=== PATIENT | female | born 1955 | race Caucasian/White ===

== ENCOUNTER 2019-04-13 04:52 | Inpatient (IN) ==
[2019-04-13] MEDS ORDERED: Ipratropium/Albuterol Neb 3 ML IH PRN (07:55)
--- NOTE | 2019-04-13 07:55 | Internal Med History&Physical ---
Date of Encounter: 04/13/19 Time of Encounter: 07:53 Internal Medicine - H&P: HPI Chief complaint: shortness of breath Admitted From: Home Plans for Post Hospital Care: Home History of present illness: Ms. Andrade is a 63 year old female with past medical history of COPD on 2 L of oxygen at home was transferred from [facility] due to recurrent COPD exacerbation for pulmonary evaluation. Did not report any fever. Her symptoms started yesterday morning after exertion. She denies any chest pain. Has increased cough. Denied increased expectoration. Denies any other complaints. She was recently treated with prednisone. Had about 4-5 admissions since last May. Patient had workup over there which was mostly unremarkable sinus tachycardia. Patient denies any cardiac history. She received Solu-Medrol, Levaquin and breathing treatments. She had to be put on BiPAP initially and transferred here later for pulmonary consult. Patient reports being using albuterol and Symbicort for her COPD. Says he is compliant with her medication. Denies any abdominal pain nausea vomiting diarrhea or urinary complaints. Reports some allergy to azithromycin with burning at the injection site. Says she is only on albuterol oxygen and Symbicort at home. Past Med Surg Social Fam HX - Past Medical History Medical history: COPD, thyroid disease Psychiatric history: no psych history - Past Surgical History Additional surgical history: tubal ligation - Social History Smoking Status: Former smoker Smokeless Tobacco Status: No Alcohol use: rarely Drug use: none - Additional Family History Additional family history: lung disease in father Internal Medicine - H&P: Meds Clindamycin HCl [Cleocin HCl] 300 mg PO QID #40 cap 03/19/16 [Rx] DiphenhydraMINE [Benadryl] 25 mg PO Q6HR #30 capsule 03/19/16 [Rx] PredniSONE [Deltasone] 20 mg PO DAILY #20 tablet 03/19/16 [Rx] Allergy/AdvReac Type Severity Reaction Status Date / Time No Known Allergies Allergy Verified 03/19/16 23:24 All Systems PM: A 10-system review of systems was performed and is negative for pertinent findings except as documented above in the HPI. - Constitutional Vitals: Temp Pulse Resp BP Pulse Ox 98.4 F 93 16 121/65 95 04/13/19 07:05 04/13/19 07:05 04/13/19 07:05 04/13/19 07:05 04/13/19 07:05 Exam: Constitutional: Vitals as noted. Conversant. No Apparent Distress. Eyes : Sclera white, conjunctiva clear, no lid lag, PEARLA. ENT : Grossly normal hearing. Respiratory : No accessory muscle use. on nasal cannula, Rhonchi and wheeze more on Rt lung field Cardiovascular : RRR, +S1, +S2. no murmur, gallop, rubs. No chest wall tenderness GI/Abdominal : Soft, Non-tender, Non-distended, normal bowel sounds, no peritoneal signs. no orgenomegaly or mass appreciated. no hernia. Musculoskeletal: no deformity noted. no edema, warm extremities, pulses palpable and symmetrical in UE/LE. no calf tenderness. Neurological: AO X3, CN II-XII grossly intact, grossly normal motor and sensory exam. Skin: No skin rash, lesions or ulcers noted. Internal Med - H&P Results - EKG Data -: EKG Interpreted by Myself EKG shows normal: sinus rhythm Rate: tachycardia - Assessment and Plan (1) Acute respiratory failure with hypoxia Current Visit: Yes Status: Acute Assessment and plan: Likely secondary to COPD exacerbation. Treatment as below. (2) COPD exacerbation Current Visit: Yes Status: Acute Assessment and plan: We will keep patient on bronchodilators, home Symbicort and steroid IV. Given recurrent COPD exacerbation we will get pulmonary consult. Obtain repeat labs and 2 view chest x-ray and pro calcitonin. Keep patient on Levaquin for now. (3) DVT prophylaxis Current Visit: Yes Status: Acute Assessment and plan: Heparin subcutaneous - Time Spent With Patient Total time spent is greater than 50% in coordination of care (as documented) at patient's floor/unit and/or counseling patient:
--- NOTE | 2019-04-13 08:18 | Pulmonology Consult Note ---
Date of Encounter: 04/13/19 Time of Encounter: 07:47 Assessment and Plan (1) COPD exacerbation Current Visit: Yes Status: Acute Megan presents with a COPD exacerbation and I suspect in large part this is secondary to a either ineffectual medication regimen or medical noncompliance in part driven by property. She is Symbicort at home but can generally not afford to take it. Recommended the patient be placed on a prolonged prednisone taper 40 mg of prednisone which can be decreased over the next 3 [address] and [facility] this weekend for pulmonary clinic and she can follow-up with me and there. She should have a home nebulizer and continue duo nebs every 4-6 hours throughout the day and that should be scheduled to so that she gets at least 3 and ideally for breathing treatments per day that may be the most cost effective strategy for her. Otherwise I have asked that her chest x-ray be uploaded into our system I will review it and make any addendum to this note based upon personal interpretation of the image. Is absolutely crucial that Megan avoid all forms of tobacco smoke and including those living in her house and I reiterated this to her. She will benefit from off 5 days total of a macrolide antibiotic for COPD exacerbation such as azithromycin. Otherwise she is quite stable and back to home oxygen support she should not have oxygen supplementation to keep saturation around 89-92%. Please discharge the patient with Symbicort 160/4.52 puffs twice a day hopefully she can leave the hospital with the inhaler from her admission which can give her some consistent therapy while we work on finding definitive treatment that she can afford in the outpatient setting Thank you very much for this consultation and I will sign off now please call with any questions (2) Acute respiratory failure with hypoxia Current Visit: Yes Status: Acute (3) Tobacco abuse Current Visit: Yes Status: Acute History of Present Illness Consult date: 04/13/19 Requesting physician: Chrissy Weinberg Reason for consult: COPD Chief complaint: Difficulty in Breathing History of present illness: Megan is a 63-year-old woman with COPD and chronic respiratory failure 2 L of oxygen all times. She is well-known to me from pulmonary clinic where I had evaluated her in September in [place] she establish care in pulmonary clinic. Unfortunately that she has had at least 3 emergency room visits/hospitalizations for COPD exacerbation in fact presented to [facility] [address] [place] overnight when she woke up in the night feeling dyspneic apparently per medical record which I reviewed she was presented was in respiratory extremis placed on BiPAP with some improvement she has been given bronchodilator steroids and antibiotics and she says she is getting back to baseline now. Chest x-ray was reviewed from the outside hospital which was without acute process. Troponin was consulted for recurrent admissions to hospitals for COPD. Patient assures me that over the last 3 months she has not smoked at all. I applauded her for her efforts to quit smoking entirely. She been feeling at her baseline yesterday and it been out shopping here in [place] and then in the evening things began to get worse. She does not know with the antecedent trigger was. She denies any cough or sputum production denies any fevers chills night sweats or hemoptysis denies any chest pain today denies any loose stools and nausea vomiting or diarrhea. Denies any increased lower show any swelling She is joined in the room today by her son Past Med Surg Social Fam HX - Past Medical History Medical history: thyroid disease Psychiatric history: no psych history - Social History Smoking Status: Current every day smoker Smokeless Tobacco Status: No Alcohol use: rarely Drug use: none Medications and Allergies Clindamycin HCl [Cleocin HCl] 300 mg PO QID #40 cap 03/19/16 [Rx] DiphenhydraMINE [Benadryl] 25 mg PO Q6HR #30 capsule 03/19/16 [Rx] PredniSONE [Deltasone] 20 mg PO DAILY #20 tablet 03/19/16 [Rx] Allergy/AdvReac Type Severity Reaction Status Date / Time No Known Allergies Allergy Verified 03/19/16 23:24 All Systems: The remainder of the systems were reviewed and are negative Physical Examination Vital Signs: Vital Signs, Last 4 Hours Temp Pulse Resp BP Pulse Ox 04/13/19 07:05 98.4 F 93 16 121/65 95 General appearance: no acute distress Eyes: nonicteric ENT: oropharynx moist Neck: supple Auscultation: bilateral: wheezes Cardiovascular: regular rate and rhythm Gastrointestinal: normoactive bowel sounds, soft, non-tender Integumentary: normal Extremities: no cyanosis, no edema, no clubbing Musculoskeletal: no deformities normal mental status, non-focal exam mood appropriate Results - Laboratory Findings Abnormal lab findings: Abnormal lab results POC Glucose 179 mg/dL (70-99) H 04/13/19 07:14 - Diagnostic Findings Chest x-ray: report reviewed - Clinical Findings Intake & Output: Intake & Output 04/12/19 04/12/19 04/13/19 15:59 23:59 07:59 Weight 82.9 kg Consult Discharge Plan - Plan Referrals: NONE,PCP [Primary Care Provider] -
[2019-04-13] MEDS: levoFLOXacin 750 MG/150 ML 750 MG/150 ML BAG IVPB SCH (09:00)
[2019-04-13] MEDS: methylPREDNISolone 125 MG/2 ML VIAL IVP SCH ×3 (09:00→23:25)
[2019-04-13] MEDS: Budesonide/Formoterol 160/4.5 1 PUFF INH IH SCH ×2 (10:44→22:56)
[2019-04-13] MEDS: Ipratropium/Albuterol Neb 3 ML IH SCH ×3 (10:44→22:56)
[2019-04-13] MEDS ORDERED: *HR* Dextrose 50 % in Water (Syg) 50 ML SYRINGE IVP PRN (11:24)
[2019-04-13] MEDS ORDERED: D5% in Water 1,000 ML IVC PRN (11:24)
[2019-04-13] MEDS ORDERED: Dextrose Gel 15 GM/37.5 ML TUBE PO PRN ×2 (11:24)
[2019-04-13] MEDS: Insulin LISPRO 300 UNITS/3 ML VIAL SQ SCH ×2 (11:49→17:21)
[2019-04-13 12:26] LABS: Basophils % 0.1 %; Hematocrit 36.6 % (35.3-44.9); Hemoglobin 11.5 g/dL (11.5-15.4); Immature Granulocytes % 0.4 % (0-4); Lymphocytes # 0.6 K/mcL (0.6-4.6); Lymphocytes % 5.9 %; Mean Corpuscular HGB Conc 31.4 g/dL (31.6-35.5); Mean Corpuscular Volume 105.2 fL (83.0-100.0); Mean Platelet Volume 9.5 fL (9.4-12.4); Monocytes # 0.1 K/mcL (0.0-1.3); Monocytes % 0.8 %; Platelet Count 290 K/mcL (140-400); Red Blood Count 3.48 M/mcL (3.82-4.97); Segmented Neutrophils % 92.8 %; White Blood Count 10.7 K/mcL (4.3-11.1)
[2019-04-13 12:45] LABS: BUN/Creatinine Ratio 24 (6-26); Blood Urea Nitrogen 23 mg/dL (8-23); Calcium 9.2 mg/dL (8.6-10.3); Carbon Dioxide 29 mEq/L (23-29); Chloride 101 mEq/L (98-107); Glucose 238 mg/dL (70-105); Osmolality,Calculated 301 (280-300); Potassium 4.2 mEq/L (3.5-5.1); Sodium 140 mEq/L (136-145); eGFR For African Americans > 60 (> 60); eGFR For Non-African Americans 60 (> 60)
[2019-04-13] MEDS: Acetaminophen 325 MG TABLET PO PRN ×2 (12:52→23:27)
[2019-04-13] MEDS: *HR* Heparin 5,000 UNIT/ML VIAL SQ SCH ×2 (15:31→23:25)
[2019-04-14] MEDS: Ipratropium/Albuterol Neb 3 ML IH SCH ×4 (04:00→22:34)
[2019-04-14 04:17] LABS: Basophils % 0.1 %; Hematocrit 33.5 % (35.3-44.9); Hemoglobin 10.5 g/dL (11.5-15.4); Immature Granulocytes % 0.8 % (0-4); Lymphocytes # 0.8 K/mcL (0.6-4.6); Lymphocytes % 5.7 %; Mean Corpuscular HGB Conc 31.3 g/dL (31.6-35.5); Mean Corpuscular Hemoglobin 32.7 pg (28.0-33.3); Mean Corpuscular Volume 104.4 fL (83.0-100.0); Mean Platelet Volume 9.7 fL (9.4-12.4); Monocytes # 0.4 K/mcL (0.0-1.3); Monocytes % 3.2 %; Neutrophils # 12.6 K/mcL (1.6-8.9); Platelet Count 271 K/mcL (140-400); Red Blood Count 3.21 M/mcL (3.82-4.97); Segmented Neutrophils % 90.2 %
[2019-04-14 04:37] LABS: BUN/Creatinine Ratio 32 (6-26); Blood Urea Nitrogen 26 mg/dL (8-23); Calcium 8.9 mg/dL (8.6-10.3); Carbon Dioxide 27 mEq/L (23-29); Chloride 104 mEq/L (98-107); Glucose 225 mg/dL (70-105); Osmolality,Calculated 300 (280-300); Potassium 4.2 mEq/L (3.5-5.1); Sodium 139 mEq/L (136-145); eGFR For African Americans > 60 (> 60); eGFR For Non-African Americans > 60 (> 60)
[2019-04-14] MEDS: *HR* Heparin 5,000 UNIT/ML VIAL SQ SCH ×3 (05:23→20:59)
[2019-04-14] MEDS: Insulin LISPRO 300 UNITS/3 ML VIAL SQ SCH ×3 (07:16→16:24)
[2019-04-14] MEDS: levoFLOXacin 750 MG/150 ML 750 MG/150 ML BAG IVPB SCH (07:17)
[2019-04-14] MEDS: methylPREDNISolone 125 MG/2 ML VIAL IVP SCH ×2 (07:17→20:59)
[2019-04-14] MEDS: Budesonide/Formoterol 160/4.5 1 PUFF INH IH SCH ×2 (09:40→22:34)
[2019-04-14 11:15] LABS: Estimated Average Glucose 157 mg/dl
--- NOTE | 2019-04-14 13:03 | Internal Med Progress Note ---
Hospitalist Progress Note - Encounter Date of Encounter: 04/14/19 Time of Encounter: 10:15 - Subjective Interval History: Patient was seen at bedside. Reports improvement in the respiratory status. Still coughing with sputum production but the sputum is clear. Denies fever, chills, rigors overnight. No other overnight events. - Exam Vitals: Temp Pulse Resp BP Pulse Ox 98.0 F 100 18 130/81 91 04/14/19 11:12 04/14/19 11:12 04/14/19 11:12 04/14/19 11:12 04/14/19 11:12 Exam: General: Alert and oriented, no physical distress, able to follow commands. HEENT: No thyromegaly, no lymphadenopathy, no discharge. Eyes: No discharge. Normal conjuctiva, no icterus Respiratory: Diffuse wheezing on both sides. CVS: Normal heart sounds, no murmurs, regular rhthm, no edema Extremities: No peripheral edema, peripheral pulses intact. Lymph nodes: No lymphadenopathy Gastrointestinal: Soft, nontender abdomen, normal abdominal sounds. No distention noted. Genitourinary: No paravertebral tenderness. Skin: No rash, ulcers or wound. Neurological: Alert and oriented. No focal deficits. Cranial nerves II-XII intact.. - Assessment and Plan (1) Acute respiratory failure with hypoxia Current Visit: Yes Status: Acute Assessment and Plan: Likely secondary to COPD exacerbation. Plan mentioned below (2) COPD exacerbation Current Visit: Yes Status: Acute Assessment and Plan: Improving. Continue the patient on breathing treatments. Continue steroids, today the dose to 40 mg twice a day. She will need long taper. As recommended by the pulmonology, change antibiotics to azithromycin as no signs of PNA on CXR Wean off the oxygen to 2L which is pt baseline (3) DVT prophylaxis Current Visit: Yes Status: Acute Assessment and Plan: Heparin subcutaneous (4) Hyperglycemia Current Visit: Yes Status: Acute Assessment and Plan: Blood glucose levels noted to be high. Hemoglobin A1c of 7.1. Current elevation seems to be because of the steroids. Patient may need to be started on antidiabetic medication. For patient purposes, continue the patient on low-dose sliding scale. (5) Tobacco abuse Current Visit: Yes Status: Acute Assessment and Plan: Quit smoking months ago. Passive exposure because of the neighbors. Advised to avoid exposure. - Time Spent with Patient Total time spent is greater than 50% in coordination of care (as documented) at patient's floor/unit and/or counseling patient: Internal Medicine: Result - Labs CBC & Chem 7: 04/14/19 03:38 04/14/19 03:38 Labs: Short CBC 04/14/19 Range/Units 03:38 WBC 14.0 H (4.3-11.1) K/mcL Hgb 10.5 L (11.5-15.4) g/dL Hct 33.5 L (35.3-44.9) % Plt Count 271 (140-400) K/mcL Neutrophils # 12.6 H (1.6-8.9) K/mcL BMP 04/14/19 03:38 Sodium 139 Potassium 4.2 Chloride 104 Carbon Dioxide 27 BUN 26 H Creatinine 0.82 Glucose 225 H Calcium 8.9 - Impressions Impressions Chest X-Ray 04/13/19 11:28 IMPRESSION: Right-sided pleural effusion and small left-sided pleural effusion with overlying atelectatic changes. D/ /13/2019 11:34:43 Ko Campbell MD / jah Interpreting Provider: Ko Campbell MD Consult Discharge Plan - Plan Referrals: Rita Ren CNP [Advanced Practice Nurse] - NONE,PCP [Primary Care Provider] -
[2019-04-14] MEDS ORDERED: SALMETEROL IH SCH (21:00)
[2019-04-14] MEDS ORDERED: FLUTICASONE IH SCH (21:00)
[2019-04-14] MEDS ORDERED: [UNRECOGNIZED DRUG - OTHER] IH SCH (21:00)
[2019-04-14] MEDS: Acetaminophen 325 MG TABLET PO PRN (22:52)
[2019-04-14 23:02] LABS: Adenovirus Not Detected (Not Detect); Bordetella Pertussis Not Detected (Not Detect); Chlamydophila pneumoniae Not Detected (Not Detect); Coronavirus 229E Not Detected (Not Detect); Coronavirus HKU1 Not Detected (Not Detect); Coronavirus NL63 Not Detected (Not Detect); Coronavirus OC43 Not Detected (Not Detect); Human Metapneumovirus Not Detected (Not Detect); Human Rhinovirus/Enterovirus Not Detected (Not Detect); Influenza A Subtype 2009 H1 Not Detected (Not Detect); Influenza A Untypeable Not Detected (Not Detect); Influenza B Not Detected (Not Detect); Mycoplasma pneumoniae Not Detected (Not Detect); Parainfluenza Virus 1 Not Detected (Not Detect); Parainfluenza Virus 2 Not Detected (Not Detect); Parainfluenza Virus 3 Not Detected (Not Detect); Parainfluenza Virus 4 Not Detected (Not Detect); Respiratory Syncytial Virus Not Detected (Not Detect)
[2019-04-15] MEDS: Ipratropium/Albuterol Neb 3 ML IH SCH ×7 (04:31→23:57)
[2019-04-15] MEDS: *HR* Heparin 5,000 UNIT/ML VIAL SQ SCH ×3 (05:19→21:38)
[2019-04-15] MEDS: hydroCHLOROthiazide 25 MG TABLET PO SCH (07:32)
[2019-04-15] MEDS: methylPREDNISolone 125 MG/2 ML VIAL IVP SCH (07:32)
[2019-04-15 07:33] LABS: Basophils % 0.2 %; Hematocrit 35.9 % (35.3-44.9); Hemoglobin 11.2 g/dL (11.5-15.4); Immature Granulocytes % 2.5 % (0-4); Lymphocytes # 0.5 K/mcL (0.6-4.6); Lymphocytes % 4.2 %; Mean Corpuscular HGB Conc 31.2 g/dL (31.6-35.5); Mean Corpuscular Hemoglobin 32.7 pg (28.0-33.3); Mean Platelet Volume 9.4 fL (9.4-12.4); Monocytes # 0.4 K/mcL (0.0-1.3); Monocytes % 2.9 %; Platelet Count 283 K/mcL (140-400); Red Blood Count 3.42 M/mcL (3.82-4.97); Red Cell Distribution Width 15.3 % (11.5-14.5); Segmented Neutrophils % 90.2 %; White Blood Count 12.2 K/mcL (4.3-11.1)
[2019-04-15] MEDS: Insulin LISPRO 300 UNITS/3 ML VIAL SQ SCH ×3 (07:34→16:59)
[2019-04-15] MEDS: Azithromycin 500 MG in 0.9 % Sodium Chloride 250 ML IVPB SCH (07:35)
[2019-04-15] MEDS: Budesonide/Formoterol 160/4.5 1 PUFF INH IH SCH ×2 (07:49→19:51)
[2019-04-15 07:58] LABS: BUN/Creatinine Ratio 29 (6-26); Blood Urea Nitrogen 25 mg/dL (8-23); Calcium 8.9 mg/dL (8.6-10.3); Carbon Dioxide 28 mEq/L (23-29); Chloride 105 mEq/L (98-107); Glucose 241 mg/dL (70-105); Osmolality,Calculated 300 (280-300); Potassium 4.2 mEq/L (3.5-5.1); Sodium 139 mEq/L (136-145); eGFR For African Americans > 60 (> 60); eGFR For Non-African Americans > 60 (> 60)
[2019-04-15] MEDS ORDERED: Isovue-370 500 ML BOTTLE IVP ONE (08:37)
--- NOTE | 2019-04-15 12:21 | Internal Med Progress Note ---
Hospitalist Progress Note - Encounter Date of Encounter: 04/15/19 Time of Encounter: 09:45 - Subjective Interval History: Patient was seen at bedside. She is slightly more tachycardic today. Has been regarding increased amounts of oxygen, on 7 L of oxygen, saturation in the low 90s. Patient denies any complaints. Denies shortness of breath or chest pain. Has been feeling otherwise okay. He is getting breathing treatments with sputum production. - Exam Vitals: Temp Pulse Resp BP Pulse Ox 98.0 F 97 18 118/75 92 04/15/19 10:51 04/15/19 10:51 04/15/19 11:10 04/15/19 10:51 04/15/19 11:10 Exam: General: Alert and oriented, mild physical distress, able to follow commands. Respiratory: Diffuse wheezing on both sides, almost the same as yesterday CVS: Normal heart sounds, no murmurs, regular rhthm, tachycardic, no edema Extremities: No peripheral edema, peripheral pulses intact. Gastrointestinal: Soft, nontender abdomen, normal abdominal sounds. No distention noted. Genitourinary: No paravertebral tenderness. Skin: No rash, ulcers or wound. Neurological: Alert and oriented. No focal deficits. Cranial nerves II-XII intact.. - Assessment and Plan (1) Acute respiratory failure with hypoxia Current Visit: Yes Status: Acute Assessment and Plan: Likely secondary to COPD exacerbation. Considering the increased oxygen requirements, other differential could be pneumonia versus pulmonary embolism. Will obtain a CT scan of the chest for better to rule out pneumonia and pulmonary embolism. (2) COPD exacerbation Current Visit: Yes Status: Acute Assessment and Plan: Improving. Continue the patient on breathing treatments. Increase the frequency. Continue steroids at the current dose. Continue azithromycin. Mentioned above, obtain a CT scan of the chest. (3) DVT prophylaxis Current Visit: Yes Status: Acute Assessment and Plan: Heparin subcutaneous (4) Hyperglycemia Current Visit: Yes Status: Acute Assessment and Plan: Blood glucose levels noted to be high. Hemoglobin A1c of 7.1. Current elevation seems to be because of the steroids. Patient may need to be started on antidiabetic medication. For patient purposes, continue the patient on low-dose sliding scale. (5) Tobacco abuse Current Visit: Yes Status: Acute Assessment and Plan: Quit smoking months ago. Passive exposure because of the neighbors. Advised to avoid exposure. - Time Spent with Patient Total time spent is greater than 50% in coordination of care (as documented) at patient's floor/unit and/or counseling patient: Internal Medicine: Result - Labs CBC & Chem 7: 04/15/19 06:47 04/15/19 06:47 Labs: Short CBC 04/15/19 Range/Units 06:47 WBC 12.2 H (4.3-11.1) K/mcL Hgb 11.2 L (11.5-15.4) g/dL Hct 35.9 (35.3-44.9) % Plt Count 283 (140-400) K/mcL Neutrophils # 11.0 H (1.6-8.9) K/mcL BMP 04/15/19 06:47 Sodium 139 Potassium 4.2 Chloride 105 Carbon Dioxide 28 BUN 25 H Creatinine 0.85 Glucose 241 H Calcium 8.9 Consult Discharge Plan - Plan Referrals: Rita Ren, INSULATION SPRAYER [Advanced Practice Nurse] - NONE,PCP [Primary Care Provider] -
[2019-04-15] MEDS: MethylPREDNISolone 40 MG/ML VIAL IVP SCH ×2 (16:58→21:34)
[2019-04-16 04:03] LABS: Basophils % 0.1 %; Hematocrit 35.7 % (35.3-44.9); Hemoglobin 11.1 g/dL (11.5-15.4); Immature Granulocytes % 2.8 % (0-4); Lymphocytes # 0.6 K/mcL (0.6-4.6); Lymphocytes % 5.3 %; Mean Corpuscular HGB Conc 31.1 g/dL (31.6-35.5); Mean Corpuscular Hemoglobin 32.8 pg (28.0-33.3); Mean Corpuscular Volume 105.6 fL (83.0-100.0); Mean Platelet Volume 9.5 fL (9.4-12.4); Monocytes # 0.2 K/mcL (0.0-1.3); Monocytes % 2.1 %; Neutrophils # 10.1 K/mcL (1.6-8.9); Platelet Count 269 K/mcL (140-400); Red Blood Count 3.38 M/mcL (3.82-4.97); Red Cell Distribution Width 15.5 % (11.5-14.5); Segmented Neutrophils % 89.7 %; White Blood Count 11.2 K/mcL (4.3-11.1)
[2019-04-16 04:17] LABS: BUN/Creatinine Ratio 30 (6-26); Blood Urea Nitrogen 24 mg/dL (8-23); Carbon Dioxide 27 mEq/L (23-29); Chloride 104 mEq/L (98-107); Glucose 331 mg/dL (70-105); Osmolality,Calculated 301 (280-300); Potassium 4.2 mEq/L (3.5-5.1); Sodium 137 mEq/L (136-145); eGFR For African Americans > 60 (> 60); eGFR For Non-African Americans > 60 (> 60)
[2019-04-16] MEDS: Ipratropium/Albuterol Neb 3 ML IH SCH ×5 (04:19→20:04)
[2019-04-16] MEDS: *HR* Heparin 5,000 UNIT/ML VIAL SQ SCH ×3 (05:48→22:26)
[2019-04-16] MEDS: Budesonide/Formoterol 160/4.5 1 PUFF INH IH SCH ×2 (07:15→20:04)
[2019-04-16] MEDS: Insulin LISPRO 300 UNITS/3 ML VIAL SQ SCH ×3 (07:37→16:14)
[2019-04-16] MEDS: Azithromycin 500 MG in 0.9 % Sodium Chloride 250 ML IVPB SCH (07:39)
[2019-04-16] MEDS: MethylPREDNISolone 40 MG/ML VIAL IVP SCH ×4 (07:39→23:29)
[2019-04-16] MEDS: hydroCHLOROthiazide 25 MG TABLET PO SCH (07:39)
[2019-04-16] MEDS ORDERED: Dexamethasone 4 MG/ML VIAL ONE (08:44)
[2019-04-16] MEDS ORDERED: Ondansetron 4 MG/2 ML VIAL ONE (08:44)
[2019-04-16] MEDS ORDERED: Lidocaine -MPF 2% 2 ML VIAL ONE (08:44)
[2019-04-16] MEDS ORDERED: *HR* Midazolam HCl 2 MG/2 ML VIAL ONE (08:44)
[2019-04-16] MEDS ORDERED: *HR* Propofol 200 MG/20 ML VIAL IVP ONE (08:44)
[2019-04-16] MEDS ORDERED: *HR* FentaNYL (PF) 100 MCG/2 ML VIAL ONE (08:44)
[2019-04-16] MEDS ORDERED: Lidocaine -MPF 4% 5 ML AMPUL ONE (08:44)
[2019-04-16 08:51] LABS: INR 0.9
[2019-04-16 08:53] LABS: Activated Partial Thrombo Time 25.7 Seconds (26.0-36.0)
[2019-04-16] MEDS ORDERED: Azithromycin 250 MG TABLET PO SCH (09:00)
--- NOTE | 2019-04-16 09:52 | Anesthesia Evaluation PreOp ---
Date of Encounter: 04/16/19 Time of Encounter: 09:50 - Past History Planned Operation: Bronchoscopy Pulmonary History: Smoker, COPD (Home oxygen) MEDICAL ASSISTANT History: Denies Any Significant HX Other Medical History: Denies Any Significant HX Anesthesia History: No Prior Anesthetic Complications : No Alcohol Use: rarely Drug use: none Medications and Allergies Albuterol Sulfate [Ventolin Hfa] 2 puff IH Q6H 04/13/19 [History] Fluticasone/Salmeterol [Advair 100-50 Diskus] 1 puff IH BID 04/13/19 [History] Ipratropium/Albuterol Neb [Duoneb] 3 ml IH Q6HR 04/13/19 [History] hydroCHLOROthiazide [Hydrochlorothiazide] 50 mg PO QAM 04/13/19 [History] Allergy/AdvReac Type Severity Reaction Status Date / Time No Known Allergies Allergy Verified 03/19/16 23:24 - Meds/Allergy Pre-op Review Medications Reviewed: Yes Allergies Reviewed: Yes Beta Blockers on Current Med List: No Anesthesia Results - Labs 04/16/19 03:25 04/16/19 03:25 Anesthesia Exam O2 Sat Weight 82.7 kg O2 Sat by Pulse Oximetry 91 O2 Sat by Pulse Oximetry 94 O2 Sat by Pulse Oximetry 94 O2 Sat by Pulse Oximetry 91 O2 Sat by Pulse Oximetry 93 O2 Sat by Pulse Oximetry 92 O2 Sat by Pulse Oximetry 91 O2 Sat by Pulse Oximetry 93 O2 Sat by Pulse Oximetry 93 O2 Sat by Pulse Oximetry 90 O2 Sat by Pulse Oximetry 92 O2 Sat by Pulse Oximetry 92 Vital Signs Temp Pulse Resp BP Pulse Ox 98.4 F 93 16 121/65 95 04/13/19 07:05 04/13/19 07:05 04/13/19 07:05 04/13/19 07:05 04/13/19 07:05 Height: 4'11 Weight: 182 lbs NPO (# of Hours): MN Pain Scale: 0 - HEENT Pupil (Motor): Pupils equal, EOMI Mallampati: III Oral Opening: Less than or equal to 3 - MEDICAL ASSISTANT LOC: Oriented MEDICAL ASSISTANT Motor: Normal RUE, Normal LUE, Normal RLE, Normal LLE, Normal Face MEDICAL ASSISTANT Sensory: Normal: RUE, LUE, RLE, LLE, Face - Cardiac Rhythm: Regular Murmur: None JVD: No Carotid Bruit: No - Pulmonary Breath Sounds: bilateral Rales Respiratory Effort: Symmetrical Anesthesia Assess/Plan ASA Score: 4 (Severe COPD on home oxygen) Level of consciousness: Cooperative, Oriented Anesthetic Plan: General Monitoring Plan: Standard Monitors Recovery Plan: PACU (Discussed GA, agrees to proceed)
--- NOTE | 2019-04-16 10:17 | Internal Med Progress Note ---
Hospitalist Progress Note - Encounter Date of Encounter: 04/16/19 Time of Encounter: 08:25 - Subjective Interval History: Patient was seen at bedside. Looks comfortable. Saturating in the low 90s on some monitor oxygen. Denies fever, chills, rigors. Denies having cough with sputum production. She is nothing by mouth for possible bronchoscopy. No other overnight events. - Exam Vitals: Temp Pulse Resp BP Pulse Ox 97.8 F 101 18 140/72 92 04/16/19 10:03 04/16/19 10:03 04/16/19 10:03 04/16/19 10:03 04/16/19 10:03 Exam: General: Alert and oriented, mild physical distress, able to follow commands. Respiratory: Diffuse wheezing on both sides, almost the same as yesterday CVS: Normal heart sounds, no murmurs, regular rhthm, tachycardic, no edema Extremities: No peripheral edema, peripheral pulses intact. Gastrointestinal: Soft, nontender abdomen, normal abdominal sounds. No distention noted. Genitourinary: No paravertebral tenderness. Skin: No rash, ulcers or wound. Neurological: Alert and oriented. No focal deficits. Cranial nerves II-XII intact.. - Assessment and Plan (1) Acute respiratory failure with hypoxia Current Visit: Yes Status: Acute Assessment and Plan: Likely secondary to COPD exacerbation. The scan of the chest was done yesterday which was negative for pulmonary embolism but showed complete volume loss on the right middle and lower lobes with obstruction of the bronchus intermedius suggesting mucous plugging. Discussed with the pulmonology team in the morning, patient will need a bronchoscopy today. Nothing by mouth. (2) COPD exacerbation Current Visit: Yes Status: Acute Assessment and Plan: Improving. Continue the patient on breathing treatments. Continue steroids at the current dose. Continue azithromycin. Plan for the bronchoscopy to clear the secretions. (3) DVT prophylaxis Current Visit: Yes Status: Acute Assessment and Plan: Heparin subcutaneous (4) Hyperglycemia Current Visit: Yes Status: Acute Assessment and Plan: Blood glucose levels noted to be high. Hemoglobin A1c of 7.1. Current elevation seems to be because of the steroids. Patient may need to be started on antidiabetic medication. For patient purposes, continue the patient on low-dose sliding scale. (5) Tobacco abuse Current Visit: Yes Status: Acute Assessment and Plan: Quit smoking months ago. Passive exposure because of the neighbors. Advised to avoid exposure. - Time Spent with Patient Total time spent is greater than 50% in coordination of care (as documented) at patient's floor/unit and/or counseling patient: Internal Medicine: Result - Labs CBC & Chem 7: 04/16/19 03:25 04/16/19 03:25 Labs: Short CBC 04/16/19 Range/Units 03:25 WBC 11.2 H (4.3-11.1) K/mcL Hgb 11.1 L (11.5-15.4) g/dL Hct 35.7 (35.3-44.9) % Plt Count 269 (140-400) K/mcL Neutrophils # 10.1 H (1.6-8.9) K/mcL BMP 04/16/19 03:25 Sodium 137 Potassium 4.2 Chloride 104 Carbon Dioxide 27 BUN 24 H Creatinine 0.80 Glucose 331 H Calcium 9.0 - ABG Interpretation ABG results: PT/INR, D-dimer PT 10.0 Seconds (9.4-12.1) 04/16/19 07:58 - Impressions Impressions Chest CTA 04/15/19 17:03 IMPRESSION: Negative CTA for pulmonary embolus. Complete volume loss right middle and lower lobes with obstruction of the bronchus intermedius suggesting mucous plugging. No definitive mass is seen. Bronchoscopy may prove helpful for further assessment. D/ / 04/15/2019 17:21:49 Nehemiah Walsh MD / bcarter Interpreting Provider: Nehemiah Walsh MD Consult Discharge Plan - Plan Referrals: Rita Ren, PRIOR AUTHORIZATION NURSE [Advanced Practice Nurse] - NONE,PCP [Primary Care Provider] -
--- NOTE | 2019-04-16 11:10 | Anesthesia Evaluation Post Op ---
Date of Encounter: 04/16/19 Time of Encounter: 11:09 - Vital Signs Vital Signs: Selected Entries 04/16/19 10:45 04/16/19 11:05 Temperature 97.6 F Pulse Rate 105 Respiratory Rate 15 Blood Pressure 119/71 O2 Sat by Pulse Oximetry 90 - Lungs Lungs: Clear Ascult./Percussion - Airway Airway: Non-obstructed - Cardiovascular Regular Rate - Mental Status Mental Status: Alert & Oriented, Answers Appropriately - Pain Pain Scale: 0 Pain Scale used: Numeric (1 - 10) - Nausea Vomiting Nausea Vomiting: Not Present - Hydration Hydration: Tolerates oral liquids, Has not voided - Discharge PostOp Status: Transfer Patient to floor
[2019-04-16] MEDS ORDERED: Albuterol 2.5 MG/3 ML NEBULIZER IH PRN (11:32)
--- NOTE | 2019-04-16 12:08 | Pulmonology Progress Note ---
Date of Encounter: 04/16/19 Time of Encounter: 09:00 Assessment and Plan (1) Acute and chronic respiratory failure Current Visit: Yes Status: Acute Patient with acute on chronic hypoxic respiratory failure secondary to COPD exacerbation and pneumonia had extensive mucus plugging in the right bronchus intermedius with middle lobe and the lower lobe. Bronchoscopy with BAL and suctioning was done. Qualifiers: Respiratory failure complication: hypoxia Qualified Code(s): J96.21 - Acute and chronic respiratory failure with hypoxia (2) COPD exacerbation Current Visit: Yes Status: Acute To continue current regimen of bronchodilators on discharge patient should be discharged on the current Symbicort what she is getting at the hospital as patient cannot afford the medications outpatient please send her on DuoNeb nebulizer. Will follow-up at outpatient pulmonology in [place]. Please do a 2 week prednisone taper personally discussed with the hospitalist. (3) Tobacco abuse Current Visit: Yes Status: Acute Counseled about the importance of smoking abstinence congratulated for stopping smoking for almost 6 months. (4) Pneumonia Current Visit: Yes Status: Acute Patient had bilateral mucus plugging more worsen the bronchus intermedius and right middle lobe and lower lobe. BAL was sent for cultures. Qualifiers: Pneumonia type: due to unspecified organism Laterality: unspecified laterality Qualified Code(s): J18.9 - Pneumonia, unspecified organism Subjective Principal diagnosis: copd exacerbation Objective PUL Vital signs: Last Vital Signs Temp 97.8 F 04/16/19 11:15 Pulse 100 04/16/19 11:15 Resp 15 04/16/19 11:15 BP 120/63 04/16/19 11:15 Pulse Ox 92 04/16/19 11:15 Results - Laboratory Findings CBC and BMP: 04/16/19 03:25 04/16/19 03:25 PT/INR, D-dimer PT 10.0 Seconds (9.4-12.1) 04/16/19 07:58 Abnormal lab findings: Abnormal lab results WBC 11.2 K/mcL (4.3-11.1) H 04/16/19 03:25 RBC 3.38 M/mcL (3.82-4.97) L 04/16/19 03:25 Hgb 11.1 g/dL (11.5-15.4) L 04/16/19 03:25 Hct 33.5 % (35.3-44.9) L 04/14/19 03:38 MCV 105.6 fL (83.0-100.0) H 04/16/19 03:25 MCHC 31.1 g/dL (31.6-35.5) L 04/16/19 03:25 RDW 15.5 % (11.5-14.5) H 04/16/19 03:25 Neutrophils # 10.1 K/mcL (1.6-8.9) H 04/16/19 03:25 Lymphocytes # 0.5 K/mcL (0.6-4.6) L 04/15/19 06:47 APTT 25.7 Seconds (26.0-36.0) L 04/16/19 07:58 BUN 24 mg/dL (8-23) H 04/16/19 03:25 BUN/Creatinine Ratio 30 (6-26) H 04/16/19 03:25 Glucose 331 mg/dL (70-105) H 04/16/19 03:25 POC Glucose 233 mg/dL (70-99) H 04/15/19 16:20 Hemoglobin A1c 7.1 % (-5.6) H 04/14/19 03:38 Calculated Osmolality 301 (280-300) H 04/16/19 03:25 - Clinical Findings Intake & Output: Intake & Output 04/15/19 04/16/19 04/16/19 23:59 07:59 15:59 Intake Total 0 / 0 Output Total 1250 / 1250 Balance -1250 / -1250 Weight 82.7 kg Consult Discharge Plan - Plan Referrals: Rita Ren, [employer] [Advanced Practice Nurse] - NONE,PCP [Primary Care Provider] -
[2019-04-16] MEDS: Doxycycline 100 MG in 0.9 % Sodium Chloride Mini Bag 100 ML IVPB SCH (16:14)
[2019-04-16 20:14] LABS: Appearance of Body Fluid Cloudy (Clear); Volume of Body Fluid 12 mL
[2019-04-16 21:11] LABS: Appearance of Body Fluid Cloudy (Clear)
[2019-04-16 21:12] LABS: Volume of Body Fluid 12 mL
[2019-04-16 21:23] LABS: Appearance of Body Fluid Cloudy (Clear); Volume of Body Fluid 18 mL
[2019-04-17] MEDS: Ipratropium/Albuterol Neb 3 ML IH SCH ×4 (00:02→10:52)
[2019-04-17] MEDS: *HR* Heparin 5,000 UNIT/ML VIAL SQ SCH (05:35)
[2019-04-17] MEDS: Doxycycline 100 MG in 0.9 % Sodium Chloride Mini Bag 100 ML IVPB SCH (05:35)
[2019-04-17] MEDS: Budesonide/Formoterol 160/4.5 1 PUFF INH IH SCH (07:41)
[2019-04-17] MEDS: hydroCHLOROthiazide 25 MG TABLET PO SCH (07:46)
[2019-04-17] MEDS: MethylPREDNISolone 40 MG/ML VIAL IVP SCH (07:47)
[2019-04-17] MEDS: Insulin LISPRO 300 UNITS/3 ML VIAL SQ SCH ×2 (07:47→11:43)
[2019-04-17 10:22] VITALS: BP 116/72
--- NOTE | 2019-04-17 11:06 | Discharge Summary ---
- NOTES TO OUTPATIENT PROVIDER Notes to Outpatient Provider: Presented with the SOB, had COPD exacerbation, diagnised on steroids and doxycycline. HgA1c of 7.1, started on metformin Orders not resulted at time of discharge: Pending orders 04/16/19 10:33 Cytology [PTH] Routine 04/16/19 11:10 AFB Culture, Respiratory [TB] Routine AFB Culture, Respiratory [TB] Routine AFB Culture, Respiratory [TB] Routine AFB Smear [TB] Routine AFB Smear [TB] Routine AFB Smear [TB] Routine Culture,Respiratory,w Gram St [RM] Routine Culture,Respiratory,w Gram St [RM] Routine Culture,Respiratory,w Gram St [RM] Routine Fungal Culture [MYC] Routine Fungal Culture [MYC] Routine Fungal Culture [MYC] Routine Date of Encounter: 04/17/19 Time of Encounter: 10:00 - Discharge Diagnosis (1) Acute respiratory failure with hypoxia Priority: Primary Status: Acute (2) COPD exacerbation Priority: Secondary Status: Acute (3) DVT prophylaxis Priority: Secondary Status: Acute (4) Hyperglycemia Priority: Secondary Status: Acute (5) Tobacco abuse Priority: Secondary Status: Acute Hospital course: Ms. Andrade is a 63 year old female with a past medical history significant for COPD, on 2-3 L of oxygen at home, presented to the hospital because of the shortness of breath. Patient was diagnosed with acute hypoxic respiratory failure, due to COPD exacerbation, started treatment with steroids and antibiotics. Patient initially did better but her oxygen requirements increased the following day. CT angio was obtained to rule out pulmonary embolism, did not show the pulmonary embolism but showed secretion and mucous plugging. Pulmonology did a bronchoscopy and the patient yesterday. She was cleared up for the secretions. She is doing much better today and back to her home oxygen requirements. She will be discharged on doxycycline for 7 days, prednisone taper for 2 weeks. Medication had been sent to the pharmacy. Plan discussed with the patient and the patient's son. Pt was found to be hyperglycemic. Hemoglobin A1c was 7.1, started on metformin. Patient being discharged in stable condition. - Time Spent with Patient Total time spent providing and/or coordinating discharge services: 35 minutes - Discharge Medications Prescriptions: New Doxycycline 100 mg PO ONCE 7 Days #14 capsule metFORMIN [Glucophage] 500 mg PO BIDWM #60 tablet predniSONE [PredniSONE] See Taper PO BIDWM 16 Days #70 tablet Budesonide/Formoterol 160/4.5 [Symbicort 160/4.5] 2 puff IH BIDR inh Continued Ipratropium/Albuterol Neb [Duoneb] 3 ml IH Q6HR hydroCHLOROthiazide [Hydrochlorothiazide] 50 mg PO QAM Albuterol Sulfate [Ventolin Hfa] 2 puff IH Q6H Discontinued Fluticasone/Salmeterol [Advair 100-50 Diskus] 1 puff IH BID Home Medications: Albuterol Sulfate [Ventolin Hfa] 2 puff IH Q6H 04/13/19 [History] Ipratropium/Albuterol Neb [Duoneb] 3 ml IH Q6HR 04/13/19 [History] hydroCHLOROthiazide [Hydrochlorothiazide] 50 mg PO QAM 04/13/19 [History] Budesonide/Formoterol 160/4.5 [Symbicort 160/4.5] 2 puff IH BIDR inh 04/17/19 [Rx] Doxycycline 100 mg PO ONCE 7 Days #14 capsule 04/17/19 [Rx] metFORMIN [Glucophage] 500 mg PO BIDWM #60 tablet 04/17/19 [Rx] predniSONE [PredniSONE] See Taper PO BIDWM 16 Days #70 tablet 04/17/19 [Rx] Allergies/Adverse Reactions: Allergy/AdvReac Type Severity Reaction Status Date / Time No Known Allergies Allergy Verified 03/19/16 23:24 Date of admission: 04/15/19 17:59 Primary care physician: PCP NONE Consults: 04/13/19 08:05 Consult to Pulmonology [CONS] Routine Consulting Provider: [facility] Reason for Consult: recurrent COPD exacerbation Call Completed: Yes - Constitutional Vitals: Temp Pulse Resp BP Pulse Ox 98.7 F 96 17 116/72 92 04/17/19 10:20 04/17/19 10:20 04/17/19 10:20 04/17/19 10:20 04/17/19 10:20 Exam: General: Alert and oriented, mild physical distress, able to follow commands. Respiratory: Wheezing in both lungs, much improved as compared to yesterday CVS: Normal heart sounds, no murmurs, regular rhthm, tachycardic, no edema Extremities: No peripheral edema, peripheral pulses intact. Gastrointestinal: Soft, nontender abdomen, normal abdominal sounds. No distention noted. Genitourinary: No paravertebral tenderness. Skin: No rash, ulcers or wound. Neurological: Alert and oriented. No focal deficits. Cranial nerves II-XII intact.. - Patient Status Disposition: Home, Self-Care Condition: Fair - Discharge Instructions Follow Up With: Rita Ren CNP [Advanced Practice Nurse] - NONE,PCP [Primary Care Provider] - Ra Rodriguez MD [Partnered Physician] - - Diet and Activity Activity: increase activity as tolerated Diet: diabetic diet
[2019-04-17] MEDS ORDERED: predniSONE 20 MG TABLET PO SCH (17:00)
== END 2019-04-17 15:45 | disposition home or self-care (01) | DRG 190 ==
LOC: ICNU → SUATTDRO 07:09 → 2ANU 09:40
PROVIDERS: ADMIT Internal Medicine; ATTEND Internal Medicine

== ENCOUNTER 2022-03-18 17:32 | Observation (INO) ==
[2022-03-19] MEDS ORDERED: Nitroglycerin 0.4 MG TAB.SUBL SL PRN (03:49)
[2022-03-19] MEDS ORDERED: Naloxone 0.4 MG/ML INJ IVP PRN (03:58)
[2022-03-19] MEDS ORDERED: Ondansetron 4 MG/2 ML VIAL IVP PRN (04:00)
[2022-03-19] MEDS ORDERED: Morphine Sulfate 2 MG/ML SYRINGE IVP PRN (04:00)
[2022-03-19] MEDS ORDERED: Acetaminophen 325 MG TABLET PO PRN (04:00)
[2022-03-19] MEDS ORDERED: Ipratropium/Albuterol Neb 3 ML IH PRN (04:00)
[2022-03-19 04:59] LABS: Hematocrit 34.7 % (35.3-44.9); Hemoglobin 10.6 g/dL (11.5-15.4); Mean Corpuscular HGB Conc 30.5 g/dL (31.6-35.5); Mean Corpuscular Hemoglobin 27.7 pg (28.0-33.3); Mean Corpuscular Volume 90.8 fL (83.0-100.0); Mean Platelet Volume 9.4 fL (9.4-12.4); Platelet Count 290 K/mcL (140-400); Red Blood Count 3.82 M/mcL (3.82-4.97); Red Cell Distribution Width 15.6 % (11.5-14.5); White Blood Count 7.1 K/mcL (4.3-11.1)
[2022-03-19 05:07] LABS: Prothrombin Time 11.1 Seconds (9.4-12.1)
[2022-03-19 05:10] LABS: Activated Partial Thrombo Time 33.7 Seconds (26.0-36.0)
[2022-03-19 05:14] LABS: % Iron Saturation 6 % (15-50); Ethanol < 10 mg/dL (Less than 10); Iron 31 mcg/dL (50-170); Magnesium 2.1 mg/dL (1.6-2.6); Transferrin 360 mg/dL (203-362)
[2022-03-19 05:15] LABS: BUN/Creatinine Ratio 23 (6-26); Blood Urea Nitrogen 14 mg/dL (8-23); Calcium 8.5 mg/dL (8.6-10.3); Carbon Dioxide 27 mEq/L (23-29); Chloride 106 mEq/L (98-107); Chol/HDL Ratio 2.8 (0-4.9); Cholesterol 139 mg/dL (< 200); Glucose 209 mg/dL (70-105); HDL Cholesterol 49 mg/dL (40-59); LDL Cholesterol,Calculated 78 mg/dL (< 100); Osmolality,Calculated 293 (280-300); Potassium 4.4 mEq/L (3.5-5.1); Sodium 138 mEq/L (136-145); Triglycerides 62 mg/dL (< 150)
[2022-03-19 05:24] LABS: Thyroid Stimulating Hormone 0.029 mcIU/mL (0.340-5.600)
[2022-03-19 05:29] LABS: Ferritin 9 ng/mL (10-120)
[2022-03-19 05:34] LABS: Folate 10.8 ng/mL (3.0-16.0)
[2022-03-19] MEDS ORDERED: *HR* Heparin 5,000 UNIT/ML VIAL SQ SCH (06:00)
[2022-03-19 07:11] LABS: Estimated Average Glucose 137 mg/dl; Hemoglobin A1C 6.4 %
[2022-03-19] MEDS ORDERED: Aspirin Enteric Coated 81 MG Tablet PO SCH (09:00)
[2022-03-19] MEDS ORDERED: Metoprolol XL (24 HR) Succ 25 MG TAB.ER.24H PO SCH (09:00)
[2022-03-19] MEDS ORDERED: Budesonide/Formoterol 160/4.5 1 PUFF INH IH SCH (10:00)
[2022-03-19 10:35] LABS: Troponin I < 0.03 ng/mL (< 0.04)
[2022-03-19 11:04] VITALS: BP 117/71; PULSE 96; TEMP 98.4; O2SAT 90
== END 2022-03-19 12:57 | disposition home or self-care (01) ==
LOC: 3BNU → SUATTDRO 22:59
PROVIDERS: ADMIT Pharmacist; ATTEND Nurse Practitioner